=== PATIENT | female | born 1970 | race Caucasian/White ===

== ENCOUNTER 2018-04-09 15:39 | Emergency (ER) | payer OTHER ==
[~2018-04-09] VITALS: Ht 160 cm; Wt 50.0 kg
[~2018-04-09 15:39] MED LIST: ACIPHEX20 MG PO; CLEOCIN150 MG PO; CLINDAMYCIN300 MG PO; DIAZEPAM10 MG OR; EFFEXOR50 M1 PO; FLEXERIL5 MG PO; LISINOPRIL10 MG PO; MELOXICAM7.5 MG PO; MIRTAZAPINE15 M1; NAPROSYN500 MG PO; NAPROXEN250 MG PO; NO; OMEPRAZOLE20 M1 PO; OMEPRAZOLE20 M2; OMEPRAZOLE20 M2 PO; PENICILLIN V POTASSIUM 500 MG OR; PENICILLN VK250 MG PO; PROAIR HFA IN; PROZAC20 M1 PO; TORADOL OR; TRAMADOL HCL50 MG PO; ZOLOFT50 MG PO
[2018-04-09 16:20] LABS: HEMATOCRIT 48.4 % (37.0-47.0); HEMOGLOBIN 16.1 g/dl (12.0-16.0); IMMATURE GRANULOCYTES 0.8 % (0.0-5.0); MEAN CELL VOLUME 97.4 fL CALC (80.0-100.0); MEAN CORPUSCULAR HGB 32.4 pG CALC (26.0-32.0); MEAN CORPUSCULAR HGB CONC 33.3 g/L CALC (32.0-36.0); NEUT# 25.49 thou/uL (2.00-7.15); RED BLOOD COUNT 4.97 mill/uL (4.20-5.60); RED CELL DISTRI WIDTH 13.5 % (11.5-15.5)
[2018-04-09 16:21] LABS: URINE BILIRUBIN - DIPSTICK NEGATIVE (NEGATIVE); URINE BLOOD DIPSTICK LARGE (NEGATIVE); URINE CLARITY TURBID; URINE COLOR YELLOW; URINE GLUCOSE - DIPSTICK NEGATIVE (NEGATIVE); URINE KETONE TRACE mg/dL (NEGATIVE); URINE LEUK ESTERASE NEGATIVE (NEGATIVE); URINE NITRITE - DIPSTICK NEGATIVE (Negative); URINE PROTEIN - DIPSTICK 100 mg/dL (NEG-TRACE); URINE SPECIFIC GRAVITY >=1.030; URINE UROBILINOGEN - DIPSTICK 0.2 E.U./dL (0.2)
[2018-04-09 16:36] LABS: BARBITURATES NEGATIVE (NEGATIVE); COCAINE NEGATIVE (NEGATIVE); METHADONE NEGATIVE (NEGATIVE); OXCYCODONE NEGATIVE (NEGATIVE); TETRAHYDROCANNABIONOL NEGATIVE (NEGATIVE); TRICYLIC ANTIDEPRESSANTS NEGATIVE (NEGATIVE)
[2018-04-09 16:37] LABS: ALBUMIN 4.7 g/dL (3.2-5.0); BILIRUBIN, TOTAL 0.7 mg/dL (0.0-1.4); URINE RBC TNTC RBC/hpf (0-5)
[2018-04-09 16:38] LABS: URINE BACTERIA MANY hpf; URINE SQUAMOUS EPITHELIAL CELL FEW EPI/hpf (0-FEW)
[2018-04-09 16:41] LABS: CREATININE 7.5 mg/dL (0.5-1.0); POTASSIUM 5.4 mmol/l (3.5-5.1); TOTAL PROTEIN 7.9 g/dL (6.3-8.2)
[2018-04-09 18:35] VITALS: BP 103/51
== END 2018-04-09 18:35 | disposition short-term general hospital (02) ==
LOC: ED 15:39
PROVIDERS: Emergency Medicine
DX: A41.9 Sepsis, unspecified organism (principal); M62.82 Rhabdomyolysis; N17.9 Acute kidney failure, unspecified; F15.10 Other stimulant abuse, uncomplicated; J44.9 Chronic obstructive pulmonary disease, unspecified; F17.200 Nicotine dependence, unspecified, uncomplicated; E87.2 Acidosis; B96.20 Unspecified Escherichia coli [E. coli] as the cause of diseases classified elsewhere; R41.82 Altered mental status, unspecified
CPT/HCPCS: J2060

== ENCOUNTER 2018-04-25 13:20 | Emergency (ER) | payer OTHER ==
[~2018-04-25] VITALS: Ht 160 cm; Wt 54.0 kg
[2018-04-25] MEDS ORDERED: AMLODIPINE5 MG PO (13:36)
[2018-04-25] MEDS ORDERED: LORATADINE10 M1 PO (13:37)
[2018-04-25] MEDS ORDERED: GABAPENTIN100 MG PO (13:37)
[2018-04-25] MEDS ORDERED: LISINOP/HCTZ1 TA2 PO (13:38)
[2018-04-25] MEDS ORDERED: METOPROL TAR25 MG PO (13:39)
[2018-04-25] MEDS ORDERED: SINGULAIR10 MG PO (13:39)
[2018-04-25] MEDS ORDERED: IMODIUM2 MG PO (13:40)
[2018-04-25] MEDS ORDERED: WELLBUTRIN150 M1 PO (13:40)
[2018-04-25] MEDS ORDERED: PROVENTIL0.083 % IN (13:43)
[2018-04-25 13:55] LABS: IMMATURE GRANULOCYTES 4.4 % (0.0-5.0); MEAN CELL VOLUME 100.3 fL CALC (80.0-100.0); MEAN CORPUSCULAR HGB 32.7 pG CALC (26.0-32.0); MEAN CORPUSCULAR HGB CONC 32.7 g/L CALC (32.0-36.0); RED BLOOD COUNT 3.91 mill/uL (4.20-5.60); RED CELL DISTRI WIDTH 14.3 % (11.5-15.5)
[2018-04-25 13:56] LABS: HEMATOCRIT 39.2 % (37.0-47.0); HEMOGLOBIN 12.8 g/dl (12.0-16.0); PLATELET COUNT 711 thou/uL (130-400)
[2018-04-25 14:05] LABS: ALKALINE PHOSPHATASE 78 u/l (38-126); BILIRUBIN, TOTAL 0.2 mg/dL (0.0-1.4); BUN 25 mg/dL (7-17); CHLORIDE 94 mmol/l (95-108); ETHYL ALCOHOL 0 mg/dl (0-30); LIPASE 19 u/l (23-300)
[2018-04-25 14:06] LABS: ALBUMIN 2.9 g/dL (3.2-5.0); ANION GAP 11 (6-22 (CALC)); BUN/CREATININE RATIO 63 (12-20 (CALC)); CARBON DIOXIDE 35 mmol/l (22-30); CREATININE 0.4 mg/dL (0.5-1.0); GFR > 60 ML/MIN (>=60 (CALC)); GFR FOR AFR.AMER. > 60 ML/MIN (>=60 (CALC)); POTASSIUM 3.8 mmol/l (3.5-5.1); SGOT/AST 22 u/l (14-36); SODIUM 136 mmol/l (137-146); TOTAL PROTEIN 5.7 g/dL (6.3-8.2)
[2018-04-25 14:17] LABS: MYOGLOBIN 23 ng/mL (0 - 62)
[2018-04-25 14:24] LABS: MAGNESIUM 1.8 mg/dL (1.6-2.3)
[2018-04-25 14:29] LABS: URINE BILIRUBIN - DIPSTICK NEGATIVE (NEGATIVE); URINE BLOOD DIPSTICK NEGATIVE (NEGATIVE); URINE COLOR YELLOW; URINE GLUCOSE - DIPSTICK NEGATIVE (NEGATIVE); URINE KETONE NEGATIVE (NEGATIVE); URINE LEUK ESTERASE NEGATIVE (NEGATIVE); URINE NITRITE - DIPSTICK NEGATIVE (Negative); URINE PH 5.5 (4.5-8.0); URINE PROTEIN - DIPSTICK 30 mg/dL (NEG-TRACE); URINE SPECIFIC GRAVITY >=1.030; URINE UROBILINOGEN - DIPSTICK 0.2 E.U./dL (0.2)
[2018-04-25 14:33] LABS: URINE CLARITY CLEAR
[2018-04-25 14:34] LABS: BARBITURATES NEGATIVE (NEGATIVE); COCAINE NEGATIVE (NEGATIVE); METHADONE NEGATIVE (NEGATIVE); OXCYCODONE NEGATIVE (NEGATIVE); TETRAHYDROCANNABIONOL NEGATIVE (NEGATIVE); TRICYLIC ANTIDEPRESSANTS NEGATIVE (NEGATIVE)
[2018-04-25 14:46] LABS: MANUAL DIFFERENTIAL YES
[2018-04-25 15:00] LABS: URINE BACTERIA FEW hpf; URINE SQUAMOUS EPITHELIAL CELL FEW EPI/hpf (0-FEW)
[2018-04-25 15:04] LABS: BAND 57 % (0-8)
[2018-04-25 16:21] VITALS: BP 108/65
== END 2018-04-25 16:42 | disposition short-term general hospital (02) ==
LOC: ED 13:20
PROVIDERS: Emergency Medicine
DX: J96.00 Acute respiratory failure, unspecified whether with hypoxia or hypercapnia (principal); J18.9 Pneumonia, unspecified organism; J44.0 Chronic obstructive pulmonary disease with (acute) lower respiratory infection; J44.1 Chronic obstructive pulmonary disease with (acute) exacerbation; F17.200 Nicotine dependence, unspecified, uncomplicated; R53.1 Weakness; R61 Generalized hyperhidrosis; R00.2 Palpitations; R06.02 Shortness of breath
CPT/HCPCS: J2060

== ENCOUNTER 2018-07-17 04:30 | Emergency (ER) | payer OTHER ==
[~2018-07-17] VITALS: Ht 160 cm; Wt 41.0 kg
[~2018-07-17 04:30] MED LIST changes: +AMLODIPINE5 MG PO; +GABAPENTIN100 MG PO; +IMODIUM2 MG PO; +LISINOP/HCTZ1 TA2 PO; +LORATADINE10 M1 PO; +METOPROL TAR25 MG PO; +PROVENTIL0.083 % IN; +SINGULAIR10 MG PO; +WELLBUTRIN150 M1 PO
[2018-07-17] MEDS ORDERED: MULTIVITAMI1 PO (05:33)
[2018-07-17] MEDS ORDERED: EFFEXOR50 M1 PO (05:33)
[2018-07-17] MEDS ORDERED: OMEPRAZOLE10 MG PO (05:34)
[2018-07-17] MEDS ORDERED: MIRTAZAPINE15 M1 PO (05:36)
[2018-07-17 05:45] LABS: HEMOGLOBIN 14.6 g/dl (12.0-16.0); IMMATURE GRANULOCYTES 1.9 % (0.0-5.0); MEAN CELL VOLUME 98.3 fL CALC (80.0-100.0); MEAN CORPUSCULAR HGB 31.9 pG CALC (26.0-32.0); MEAN CORPUSCULAR HGB CONC 32.4 g/L CALC (32.0-36.0); PLATELET COUNT 743 thou/uL (130-400); RED BLOOD COUNT 4.58 mill/uL (4.20-5.60)
[2018-07-17 05:46] LABS: ALBUMIN 2.7 g/dL (3.2-5.0); BILIRUBIN, TOTAL 0.7 mg/dL (0.0-1.4); MANUAL DIFFERENTIAL YES
[2018-07-17 05:54] LABS: CREATININE 1.4 mg/dL (0.5-1.0)
[2018-07-17 05:55] LABS: POTASSIUM 5.8 mmol/l (3.5-5.1)
[2018-07-17 06:38] LABS: BAND 10 % (0-8)
[2018-07-17 06:39] LABS: POIKILOCYTOSIS FEW
[2018-07-17 06:40] LABS: OVALOCYTES FEW
[2018-07-17 06:45] VITALS: BP 140/00
[2018-07-17 06:46] LABS: URINE BILIRUBIN - DIPSTICK NEGATIVE (NEGATIVE); URINE BLOOD DIPSTICK NEGATIVE (NEGATIVE); URINE COLOR YELLOW; URINE GLUCOSE - DIPSTICK NEGATIVE (NEGATIVE); URINE KETONE 15 mg/dL (NEGATIVE); URINE LEUK ESTERASE NEGATIVE (NEGATIVE); URINE NITRITE - DIPSTICK NEGATIVE (Negative); URINE PH 6.5 (4.5-8.0); URINE PROTEIN - DIPSTICK 100 mg/dL (NEG-TRACE); URINE SPECIFIC GRAVITY 1.025; URINE UROBILINOGEN - DIPSTICK 0.2 E.U./dL (0.2)
[2018-07-17 06:47] LABS: PLATELET ESTIMATE MARKED INCREASE
[2018-07-17 06:53] LABS: BARBITURATES NEGATIVE (NEGATIVE); COCAINE NEGATIVE (NEGATIVE); METHADONE NEGATIVE (NEGATIVE); OXCYCODONE NEGATIVE (NEGATIVE); TETRAHYDROCANNABIONOL NEGATIVE (NEGATIVE); TRICYLIC ANTIDEPRESSANTS NEGATIVE (NEGATIVE)
[2018-07-17 07:04] LABS: URINE BACTERIA MANY hpf; URINE EPITHELIAL CELLS FEW EPI/hpf (0-FEW)
== END 2018-07-17 06:45 ==
LOC: ED 04:30
PROVIDERS: Emergency Medicine
DX: A41.9 Sepsis, unspecified organism (principal); T68.XXXA Hypothermia, initial encounter; D72.829 Elevated white blood cell count, unspecified; R11.2 Nausea with vomiting, unspecified; K56.609 Unspecified intestinal obstruction, unspecified as to partial versus complete obstruction; E87.2 Acidosis; R00.0 Tachycardia, unspecified; B96.1 Klebsiella pneumoniae [K. pneumoniae] as the cause of diseases classified elsewhere; R94.31 Abnormal electrocardiogram [ECG] [EKG]; I10 Essential (primary) hypertension

== ENCOUNTER 2018-08-25 15:00 | Outpatient (RCR) | payer OTHER ==
[~2018-08-25 15:00] MED LIST changes: +MIRTAZAPINE15 M1 PO; +MULTIVITAMI1 PO; +OMEPRAZOLE10 MG PO
== END 2018-08-25 16:00 | disposition home or self-care (01) ==
LOC: PT 15:00
DX: R53.81 Other malaise (principal)